=== PATIENT | female | born 1990 | race Caucasian/White ===

== ENCOUNTER 2019-11-26 13:24 | Emergency (ER) | payer BC, SELFPAY ==
--- NOTE | 2019-11-26 13:59 | HMH.EDUTC ---
[facility] [place] Disposition Clinical Impression: Upper respiratory infection Qualifiers: URI type: unspecified URI Qualified Code(s): J06.9 - Acute upper respiratory infection, unspecified Disposition: Home, Self-Care Condition on Discharge: Good Instructions: Sinusitis, DI for Sinusitis Additional Instructions: Drink plenty of fluids. Take tylenol or ibuprofen for pain or fever. Take the medications as directed. Follow up with your regular doctor. GO TO THE ER FOR ANY WORSENING SYMPTOMS Prescriptions: Brompheniramine/Pseudoephed/Dm [Bromfed Dm Cough Syrup] 5 ml PO Q6HP PRN #240 syrup PRN Reason: Cough Transmission Status: Received by [facility] Ondansetron [Zofran 4mg ODT] 4 mg PO Q8HP PRN #20 tab.rapdis PRN Reason: Nausea Transmission Status: Received by [facility] predniSONE [Deltasone 10mg tablet] 10 mg PO BID 3 Days #6 tab Transmission Status: Received by [facility] Azithromycin [Z-Delvin 250mg Tab*] 250 mg PO UD DOSE PK #6 tab Transmission Status: Received by [facility] Referrals: PCP,No [Primary Care Provider] - Forms: Work/School Release Time of Disposition: 14:15 Medical Decision Making - Medical Records Medical records reviewed: No: I reviewed the patient's medical records. - Alex Inquiry Pt receiving controlled substance: No Vital Signs: 11/26/19 14:01 11/26/19 14:20 Temperature 98.6 F 98.6 F Temperature Source Oral Pulse Rate 84 Pulse Rate [Right Brachial] 84 Respiratory Rate 16 16 Blood Pressure 138/94 H Blood Pressure [Right Arm] 138/94 H Blood Pressure Mean [Right Arm] 108 Blood Pressure Source [Right Arm] Automatic Cuff Blood Pressure Position [Right Arm] Sitting 02 Sat by Pulse Oximetry 99 Oxygen Delivery Method Room Air [facility] [place] HPI - General Stated complaint: upper resp infection Time Seen by Provider: 11/26/19 13:59 - History of Present Illness Provider Complaint: She c/o sinus congestion and pressure for the past 3 days. - Related Data Previous Rx's Medication Instructions Recorded Azithromycin [Z-Delvin 250mg Tab*] 250 mg PO UD DOSE PK #6 tab 11/26/19 Brompheniramine/Pseudoephed/Dm 5 ml PO Q6HP PRN #240 syrup 11/26/19 [Bromfed Dm Cough Syrup] Ondansetron [Zofran 4mg ODT] 4 mg PO Q8HP PRN #20 tab.rapdis 11/26/19 predniSONE [Deltasone 10mg tablet] 10 mg PO BID 3 Days #6 tab 11/26/19 Allergies Allergy/AdvReac Type Severity Reaction Status Date / Time No Known Allergies Allergy Verified 11/26/19 14:07 [facility] History - Hepatitis A Screen Attestation statement:: This patient has been screened for Hepatitis A risk factors. I have reviewed the patient's past medical history: Yes ROS Obtained: Yes All systems reviewed & no additional complaints - Constitutional Constitutional: Denies chills, Denies fever(s), Reports poor appetite, Reports malaise - Eyes Eyes: Denies eye discharge - ENT Ears, Nose, Mouth, and Throat: Reports as per HPI - Cardiovascular Cardiovascular: Denies chest pain - Respiratory Respiratory: No chest congestion, No cough, No dyspnea, No coughing up blood, No stridor, No wheezing Physical Exam - General General appearance: alert, in no apparent distress - Head Head exam: atraumatic, normocephalic, normal inspection - Eye Eye exam: Present: normal appearance, PERRL, EOMI - ENT ENT exam: Present: normal exam, normal oropharynx, mucous membranes moist, TM's normal bilaterally, normal external ear exam - Neck Neck exam: Present: normal inspection, full ROM, trachea midline. Absent: meningismus, lymphadenopathy - Chest Chest inspection: Present: normal inspection, symmetric chest wall rise. Absent: tenderness - Respiratory Respiratory exam: Present: normal lung sounds bilaterally. Absent: respiratory distress - Cardiovascular Cardiovascular exam: Present: regular rate, normal rhythm. Absent: JVD - Abdominal Exam Abdominal exam: Presen
[2019-11-26 14:01] VITALS: BP 138/94; PULSE 84; RESP 16; TEMP 37; O2SAT 99; BMI 29.9
[2019-11-26 14:20] VITALS: BP 138/94; PULSE 84; RESP 16; TEMP 37; O2SAT 99
== END 2019-11-26 14:25 | disposition home or self-care (01) ==
PROVIDERS: Emergency Provider Nurse Practitioner Family
DX: J06.9 Acute upper respiratory infection, unspecified (principal)
CPT/HCPCS: 99201

== ENCOUNTER → 2020-09-04 19:18 | Outpatient (CLI) | payer BC, SELFPAY | PROVIDERS: Visit Provider Nurse Practitioner Family | DX: Z20.822 Contact with and (suspected) exposure to COVID-19 (principal) | CPT/HCPCS: U0003 ==

== ENCOUNTER → 2022-07-01 13:48 | Outpatient (CLI) | payer BC, SELFPAY ==
--- NOTE | 2022-07-01 13:49 | US_ITS ---
FINAL REPORT CLINICAL HISTORY: cant find strings to remove FINDINGS: Transvaginal sonographic images of the pelvis were obtained. The uterus is somewhat enlarged and measures 10.2 x 5.5 x 4.5 cm. The endometrium measures 6 mm, which is within normal limits. No uterine mass is identified. An IUD is identified from the cervix to the fundus. The right ovary measures 3.3 cm in length and left ovary measures 4.0 cm in length. Normal blood flow seen to the ovaries. Small follicles are present. There is no evidence of free fluid. IMPRESSION: Uterus is somewhat enlarged. IUD is noted from the cervix to the fundus. Reviewed, Interpreted and Dictated by Montez Bello III, MD Transcribed by Judy Chauhan Authenticated and [facility]
== END ==
LOC: RAD 13:49
PROVIDERS: Visit Provider Obstetrics & Gynecology
DX: Z30.431 Encounter for routine checking of intrauterine contraceptive device (principal); Z97.5 Presence of (intrauterine) contraceptive device
CPT/HCPCS: 76830

== ENCOUNTER 2023-08-03 15:51 | Outpatient (CLI) | payer BC, SELFPAY ==
[2023-08-03 16:56] LABS: Basophils # 0.1 K/mm3 (0-0.2); Basophils % 0.8 % (0.1-2.0); Eosinophils # 0.1 K/mm3 (0.0-0.4); Eosinophils % 1.7 % (0.1-12.0); Hematocrit 42.5 % (37.0-47.0); Lymphocytes # 1.8 K/mm3 (0.7-4.5); Lymphocytes % 27.3 % (10-50); Mean Corpuscular HGB Conc 33.1 g/dL (31.8-35.4); Mean Corpuscular Hemoglobin 29.2 pg (27.0-31.2); Mean Corpuscular Volume 88.4 fl (81-99); Monocytes # 0.3 K/mm3 (0.1-1.0); Monocytes % 5.3 % (1.7-9.3); Neutrophils # 4.2 K/mm3 (1.8-7.8); Neutrophils % 64.9 % (37.0-80.0); Platelet Count 258 K/mm3 (142-424); Red Cell Distribution Width 13.2 % (11.5-17.5); White Blood Count 6.4 K/mm3 (4.8-10.8)
[2023-08-03 17:08] LABS: Alanine Aminotransferase 15 U/L (12-78); Albumin Level 4.4 g/dl (3.5-5.0); Albumin/Globulin Ratio 1.8 (1.1-1.8); Alkaline Phosphatase 48 U/L (38-126); Anion Gap 10.3 mEq/L (5-15); Aspartate Amino Transferase 24 U/L (14-36); Bilirubin,Total 1.6 mg/dl (0.2-1.3); Blood Urea Nitrogen 8 mg/dl (7-17); Calcium 9.8 mg/dl (8.4-10.2); Carbon Dioxide 26 mmol/L (22.0-30.0); Chloride 105 mmol/L (98-107); Estimated Glomerular Filt Rate 98 ml/min (>60); GFR (African American) 118 ML/MIN (>60); Globulin 2.4 g/dL (1.3-3.2); Glucose 93 mg/dl (74-100); Potassium 4.3 mmoL/L (3.5-5.1); Sodium 137 mmol/L (136-145); Total Protein,Serum 6.8 g/dl (6.3-8.2)
[2023-08-03 17:40] LABS: HCG,Quantitative < 2 mIU/ml (0-5.42)
== END 2023-08-03 23:59 | disposition home or self-care (01) ==
LOC: LAB 15:51
PROVIDERS: Visit Provider Obstetrics & Gynecology
DX: Z97.5 Presence of (intrauterine) contraceptive device (principal); Z53.8 Procedure and treatment not carried out for other reasons
CPT/HCPCS: 36415; 80053; 84702; 85025

== ENCOUNTER 2023-08-09 09:38 | Day surgery (SDC) | payer BC, SELFPAY ==
[2023-08-05 17:10] VITALS: BMI 45.7
[2023-08-09 10:03] VITALS: BP 119/69; PULSE 66; RESP 18; TEMP 36.4; O2SAT 99
[2023-08-09] MEDS: LACTATED RINGERS 1000ML 1,000 ML 25 ML IV (10:14)
--- NOTE | 2023-08-09 10:34 | P.PNANES_ITS ---
[facility] Disclaimer: The information contained in this section may have been updated after the patient was seen, as this information can be updated by other users. Medical History No significant past medical history Surgical History [place] teeth removed Family History Other Colon cancer Heart attack Hyperlipidemia Hypertension Social History (Updated 08/09/23 @ 10:01 by Marine So RN) Smoking Status: Former smoker tobacco type: e-cigarettes alcohol intake: never substance use type: denies use current occupational status: employed Travel in the last 8 weeks: None housing: house [facility] Anesthesia Checklist Patient Identification Patient Identification: Arm Band and Family Structural Data Admitted From: Home Planned Operative Procedure/s: Removan and insertion of IUD Consent for Planned Operative Procedure(s) Verified: Yes Verified Documents: Surgical Consent and History and Physical NPO Status Verified Time NPO: 00:00 Additional verifications Patient : No Anesthesia Reactions: No Hx Blood Transfusions: No Blood Transfusion Reaction: No Cephalosporin Allergy: No Previous Colonoscopy: No Airway Assessment Mallampati Score:: Class I C-Spine Mobility Assessed: Yes TMJ Mobility Assessed: Yes Dentition: Good Dentition Neurological Assessment Level of Consciousness: Awake, Alert, Appropriate and Follows Commands Hx Seizures: No Numbness or tingling in extremities: No Anesthesia Plan Anesthesia Risk discussed: Yes ASA Class: I Anesthesia Type: MAC
[2023-08-09 11:10] VITALS: BP 112/62; PULSE 54; RESP 19; TEMP 36.4; O2SAT 96
--- NOTE | 2023-08-09 11:23 | P.OP_ITS ---
Date of procedure: 08/09/23 Pre-op Diagnosis:: 1. IUD strings not visualized, retained IUD Post-op Diagnosis:: 1. IUD strings not visualized, retained IUD Procedure performed:: IUD removal and reinsert Surgeon:: Amelia Bass DO COMPUTER ENGINEERING TECHNOLOGIST:: [place] Anesthesia: MAC Estimated blood loss (mL): 5 Operative findings:: Normal-appearing cervical os without any IUD strings visualized Operative note:: Patient desires IUD for contraception. R/B/A discussed in detail and patient had all her questions answered and desires to proceed. Risk of uterine perforation, IUD malposition, bleeding and infection reviewed. IUD removal was attempted in the office but unsuccessful. Patient was counseled on risk regarding anesthesia in OR removal Patient placed in dorsal lithotomy position with feet in stirrups. Patient was sterilely prepped and draped. Speculum placed and cervix visualized in its entirety. Single tooth tenaculum was used to grasp the anterior lip of the cervix. Polyp forceps were used and inserted to the fundus and was able to grasp the IUD and remove it. The uterus was sounded to 8cm. Mirena IUD insertion device was obtained and loaded. Sound was set to 8cm. The device was inserted through the cervical os and advanced to the uterine fundus. Device was deployed without difficulty and IUD strings were visualized exiting the os. Scissors were used to trim the IUD strings to 3cm. All instruments were removed from the vagina and tenaculum sites were noted to be hemostatic. All instruments were removed from the vagina and the patient was awakened and taken to recovery. She will be discharged home after meeting all discharge criteria. Follow up in 4 weeks for a string check Condition: stable Disposition: same day Specimens:: IUD removed and disposed of Complications:: none
[2023-08-09 11:25] VITALS: BP 118/69; PULSE 53; RESP 16; O2SAT 98
[2023-08-09 11:40] VITALS: BP 118/70; PULSE 51; RESP 16; O2SAT 100
== END 2023-08-09 11:48 | disposition home or self-care (01) ==
PROVIDERS: Visit Provider Obstetrics & Gynecology
PROC: (CPT 58301; principal; 2023-08-09 11:30)
DX: T83.32XA Displacement of intrauterine contraceptive device, initial encounter (principal)
CPT/HCPCS: 58301; 58300